=== PATIENT | female | born 1955 | race African-American/Black ===

== ENCOUNTER 2019-07-13 21:48 | Emergency (ER) | payer OTHER ==
[~2019-07-13] VITALS: Ht 175.3 cm; Wt 86.2 kg
[2019-07-13 21:55] VITALS: BP 146/83
--- NOTE | 2019-07-13 21:55 | NUR ---
ED Nurse Note: Patient walked in to ER c/o spider bite in her left pinky. pt ao4. nad. vss
--- NOTE | 2019-07-13 22:08 | Emergency Room Report ---
History of Present Illness General Chief Complaint: Upper Extremity Injury Source: Patient Present Illness HPI Patient is a 63-year-old female who presents after increased left small finger pain. Patient is right-hand dominant. She states that she had increased discomfort for 1 day. She thinks she may have been bitten by a spider. She denies any other locations of discomfort. She reports of increased pain and swelling. Allergies: Coded Allergies: No Known Allergies (Unverified , 07/13/19) Patient History Past Medical History: see triage record Now: No Reviewed Nursing Documentation: PMH: Agreed; PSxH: Agreed Review of Systems All Other Systems: negative except mentioned in HPI Physical Exam Vital Signs Date Time Temp Pulse Resp B/P (MAP) Pulse Ox O2 Delivery O2 Flow Rate FiO2 07/13/19 21:54 97.3 88 18 146/83 (104) 96 Room Air General Appearance: well appearing, no apparent distress, alert, GCS 15, non- toxic Head: normocephalic, atraumatic ENT: hearing grossly normal, normal voice Neck: full range of motion, supple Respiratory: normal inspection, lungs clear, no respiratory distress, speaking full sentences Gastrointestinal: normal inspection, normal bowel sounds Musculoskeletal: normal inspection, swelling - right small finger, no fluctuance or discoloration noted Neurologic: normal inspection, alert, oriented x3, normal gait Psychiatric: mood/affect normal Skin: no rash Medical Decision Making Diagnostic Impression: Primary Impression: Cellulitis of finger of left hand ER Course Presented for left small finger pain. Differential diagnosis include was not limited to abscess, tenosynovitis, cellulitis among others. Patient has a benign exam and does not appear to require any further imaging or laboratory testing at this time. Patient does not appear to have any definite abscess this time. Patient's finger does appear to be somewhat infected and will be started empirically Keflex and Bactrim. Patient advised to have the wound rechecked in 2 days. She is to return if worse. Last Vital Signs Date Time Temp Pulse Resp B/P (MAP) Pulse Ox O2 Delivery O2 Flow Rate FiO2 07/13/19 21:54 97.3 88 18 146/83 (104) 96 Room Air Status: improved Disposition: HOME, SELF-CARE Condition: Stable Scripts Ibuprofen (Ibuprofen) 400 Mg Tablet 400 MG PO EVERY 8 HOURS, #30 TAB Prov: Bowen Arias MD 07/13/19 Trimethoprim/Sulfamethoxazole 160/800* (BACTRIM DS TABLET*) 1 Each Tablet 1 TAB ORAL Q12H, #14 TAB 0 Refills Prov: Bowen Arias MD 07/13/19 Cephalexin* (KEFLEX*) 500 Mg Capsule 500 MG ORAL EVERY 6 HOURS, #28 CAP Prov: Bowen Arias MD 07/13/19 Bowen Arias MD Jul 13, 2019 22:08
[2019-07-13] MEDS ORDERED: IBUPROFEN400 M1 PO (22:12)
[2019-07-13] MEDS ORDERED: BACTRIM DS TAB1 EAC1 ORAL (22:12)
[2019-07-13] MEDS ORDERED: CEPHALEXIN500 MG ORAL (22:12)
[2019-07-13 22:15] VITALS: BP 146/83
[2019-07-13] MEDS ORDERED: Bactrim-DS 1 tab ORAL ONE (22:15)
[2019-07-13] MEDS ORDERED: Cephalexin 500mg cap ORAL ONE (22:15)
--- NOTE | 2019-07-13 22:15 | NUR ---
ER DISCHARGE NOTE: Patient is cleared to be discharged per ERMD, pt is aox4, on room air, with stable vital signs. pt was given dc and prescription instructions, pt was able to verbalize understanding, pt id band removed. pt is able to ambulate with steady gait. pt took all belongings.
== END 2019-07-13 22:15 | disposition home or self-care (01) ==
LOC: EMR 22:10
DX: L03.012 Cellulitis of left finger (principal)
CPT/HCPCS: 99282